=== PATIENT | male | born 1970 ===

== ENCOUNTER 2022-10-12 12:29 | Observation (INO) | payer SELFPAY ==
[2022-10-12] MEDS ORDERED: NITROGLYCERIN SL TABS 0.4 MG TAB SUBLINGUAL STA ×3 (13:04)
[2022-10-12] MEDS ORDERED: ASPIRIN 81 MG PO STA (13:04)
--- NOTE | 2022-10-12 13:09 | ED ---
General Adult HPI - General Chief complaint: Chest Pain Stated complaint: chest pain Time Seen by Provider: 10/12/22 12:44 Source: patient, RN notes reviewed Mode of arrival: ambulatory Limitations: language barrier - History of Present Illness Initial comments: Patient is a pleasant 52-year-old male presenting to the emergency department with concern for chest discomfort. Patient speaks limited Japanese and daughter is present to help translate. Patient has been having chest discomfort since yesterday discomfort is somewhat severe. Discomfort feels like tightness/burning. No associated diaphoresis or dyspnea. Patient has had nausea and did vomit. Discomfort remains persistent. No radiation. No leg pain or leg swelling. - Related Data Home Medications Medication Instructions Recorded Confirmed No Known Home Medications 10/12/22 10/12/22 Allergies Allergy/AdvReac Type Severity Reaction Status Date / Time No Known Allergies Allergy Verified 10/12/22 14:16 Review of Systems ROS Statement: Those systems with pertinent positive or pertinent negative responses have been documented in the HPI. ROS Other: All systems not noted in ROS Statement are negative. Constitutional: Denies: fever Eyes: Denies: eye pain ENT: Denies: ear pain Respiratory: Denies: cough, dyspnea Cardiovascular: Reports: as per HPI, chest pain Endocrine: Denies: fatigue Gastrointestinal: Reports: nausea, vomiting. Denies: abdominal pain Genitourinary: Denies: dysuria Musculoskeletal: Denies: back pain Skin: Denies: rash Neurological: Denies: weakness Past Medical History Past Medical History: No Reported History History of Any Multi-Drug Resistant Organisms: None Reported Past Surgical History: No Surgical Hx Reported Past Psychological History: No Psychological Hx Reported Smoking Status: Current every day smoker Past Alcohol Use History: None Reported Past Drug Use History: None Reported General Exam Limitations: language barrier General appearance: alert, in no apparent distress Head exam: Present: atraumatic Eye exam: Present: normal appearance Neck exam: Present: normal inspection Respiratory exam: Present: normal lung sounds bilaterally. Absent: chest wall tenderness Cardiovascular Exam: Present: regular rate, normal rhythm Expanded Peripheral pulses: 2+: Radial (R), Radial (L), Posterior Tibialis (R), Posterior Tibialis (L), Dorsalis Pedis (R), Dorsalis Pedis (L) GI/Abdominal exam: Present: soft. Absent: tenderness Extremities exam: Present: normal inspection. Absent: pedal edema, calf tenderness Neurological exam: Present: alert Psychiatric exam: Present: normal affect, normal mood Skin exam: Present: normal color Course Vital Signs 10/12/22 10/12/22 12:32 13:33 Temperature 98.2 F Pulse Rate 97 89 Respiratory 20 20 Rate Blood Pressure 148/89 123/75 O2 Sat by Pulse 98 97 Oximetry EKG Findings - EKG Results: EKG: interpreted by ERMD, sinus rhythm, normal axis, normal QRS, normal ST/T Medical Decision Making - Medical Decision Making Was pt. sent in by a medical professional or institution (, PA, SEPARATOR OPERATOR SHELLFISH [employer]ATS, urgent care, hospital, or assisted...) When possible be specific @ -No Did you speak to anyone other than the patient for history (EMS, parent, family, police, friend...)? What history was obtained from this source @ -Daughter is present and helps provide history and translation as patient's main language is Hebrew. Patient does understand some and communicate some however daughter is helpful Did you review nursing and triage notes (agree or disagree)? Why? @ -I reviewed and agree with nursing and triage notes Were old charts reviewed (outside hosp., previous admission, EMS record, old EKG, old radiological studies, urgent care reports/EKG's, assisted records)? Report findings @ -No old charts were reviewed Differential Diagnosis (chest pain, altered mental status, abdominal pain women, abdominal pain men, vaginal bleeding, weakness, fever, dyspnea, syncope, headache, dizziness, GI bleed, back pain, seizure, CVA, palpatations, mental health)? @ -Differential Chest Pain: Stable Angina, Unstable Angina, STEMI, NSTEMI Aortic Dissection, Pneumothorax, Musculoskeletal, Esophageal Spasm GERD, Cholecystitis, Pancreatitis, Zoster, this is not meant to be an all-inclusive list. EKG interpreted by me (3pts min.). @ -As above X-rays interpreted by me (1pt min.). @ -Chest x-ray shows no acute process CT interpreted by me (1pt min.). @ -None done U/S interpreted by me (1pt. min.). @ -None done What testing was considered but not performed or refused? (CT, X-rays, U/S, lab s)? Why? @ -None What meds were considered but not given or refused? Why? @ -None Did you discuss the management of the patient with other professionals (professionals i.e. DrDavid, PA, SEPARATOR OPERATOR [employer], lab, RT, psych nurse, social science teacher, research laboratory manager, teacher, aviation safety officer, machine adjuster leader case trim)? Give summary @ -Case discussed with Dr. Jesus, who will admit for hospital call Was smoking cessation discussed for >3mins.? @ -No Was critical care preformed (if so, how long)? @ -No Were there social determinants of health that impacted care today? How? (Homelessness, low income, unemployed, alcoholism, drug addiction, transportatio n, low edu. Level, literacy, decrease access to med. care, halfway, rehab)? @ -Patient does not have medical insurance and was hesitant to stay however after further discussion patient is agreeable Was there de-escalation of care discussed even if they declined (Discuss DNR or withdrawal of care, Hospice)? DNR status @ -No What co-morbidities impacted this encounter? (DM, HTN, Smoking, COPD, CAD, Cancer, CVA, ARF, Chemo, Hep., AIDS, mental health diagnosis, sleep apnea, morbid obesity)? @ -None Was patient admitted / discharged? Hospital course, mention meds given and route, prescriptions, significant lab abnormalities, going to OR and other pertinent info. @ -Patient will be admitted for cardiac evaluation. and further testing. Undiagnosed new problem with uncertain prognosis? @ -No Drug Therapy requiring intensive monitoring for toxicity (Heparin, Nitro, Insulin, Cardizem)? @ -No Were any procedures done? @ -No Diagnosis/symptom? @ -Chest pain Acute, or Chronic, or Acute on Chronic? @ -Acute Uncomplicated (without systemic symptoms) or Complicated (systemic symptoms)? @ -default Side effects of treatment? @ -No Exacerbation, Progression, or Severe Exacerbation? @ -No Poses a threat to life or bodily function? How? (Chest pain, [place], [place], pneumonia, PE, COPD, DKA, ARF, appy, cholecystitis, CVA, Diverticulitis, Homicidal, Suic idal, threat to staff... and all critical care pts) @ -No - Lab Data Result diagrams: 10/12/22 13:23 10/12/22 13:23 Lab Results 10/12/22 10/12/22 10/12/22 Range/Units 13:23 13:23 13:23 WBC 12.6 H (3.8-10.6) k/uL RBC 4.82 (4.30-5.90) m/uL Hgb 14.5 (13.0-17.5) gm/dL Hct 43.2 (39.0-53.0) % MCV 89.6 (80.0-100.0) fL MCH 30.1 (25.0-35.0) pg MCHC 33.5 (31.0-37.0) g/dL RDW 12.9 (11.5-15.5) % Plt Count 284 (150-450) k/uL MPV 7.0 Neutrophils % 72 % Lymphocytes % 20 % Monocytes % 6 % Eosinophils % 1 % Basophils % 0 % Neutrophils # 9.0 H (1.3-7.7) k/uL Lymphocytes # 2.5 (1.0-4.8) k/uL Monocytes # 0.7 (0-1.0) k/uL Eosinophils # 0.2 (0-0.7) k/uL Basophils # 0.0 (0-0.2) k/uL PT 9.8 (9.0-12.0) sec INR 0.9 (<1.2) APTT 22.8 (22.0-30.0) sec D-Dimer 0.38 (<0.60) mg/L FEU Sodium 139 (137-145) mmol/L Potassium 4.1 (3.5-5.1) mmol/L Chloride 106 (98-107) mmol/L Carbon Dioxide 24 (22-30) mmol/L Anion Gap 9 mmol/L BUN 14 (9-20) mg/dL Creatinine 0.62 L (0.66-1.25) mg/dL Est GFR (CKD-EPI)AfAm >90 (>60 ml/min/1.73 sqM) Est GFR (CKD-EPI)NonAf >90 (>60 ml/min/1.73 sqM) Glucose 119 H (74-99) mg/dL Calcium 9.3 (8.4-10.2) mg/dL Magnesium 2.0 (1.6-2.3) mg/dL Total Bilirubin 0.5 (0.2-1.3) mg/dL AST 22 (17-59) U/L ALT 26 (4-49) U/L Alkaline Phosphatase 75 (38-126) U/L Troponin I (0.000-0.034) ng/mL Total Protein 7.0 (6.3-8.2) g/dL Albumin 4.0 (3.5-5.0) g/dL Amylase 34 (30-110) U/L Lipase 24 (23-300) U/L 10/12/22 Range/Units 13:23 WBC (3.8-10.6) k/uL RBC (4.30-5.90) m/uL Hgb (13.0-17.5) gm/dL Hct (39.0-53.0) % MCV (80.0-100.0) fL MCH (25.0-35.0) pg MCHC (31.0-37.0) g/dL RDW (11.5-15.5) % Plt Count (150-450) k/uL MPV Neutrophils % % Lymphocytes % % Monocytes % % Eosinophils % % Basophils % % Neutrophils # (1.3-7.7) k/uL Lymphocytes # (1.0-4.8) k/uL Monocytes # (0-1.0) k/uL Eosinophils # (0-0.7) k/uL Basophils # (0-0.2) k/uL PT (9.0-12.0) sec INR (<1.2) APTT (22.0-30.0) sec D-Dimer (<0.60) mg/L FEU Sodium (137-145) mmol/L Potassium (3.5-5.1) mmol/L Chloride (98-107) mmol/L Carbon Dioxide (22-30) mmol/L Anion Gap mmol/L BUN (9-20) mg/dL Creatinine (0.66-1.25) mg/dL Est GFR (CKD-EPI)AfAm (>60 ml/min/1.73 sqM) Est GFR (CKD-EPI)NonAf (>60 ml/min/1.73 sqM) Glucose (74-99) mg/dL Calcium (8.4-10.2) mg/dL Magnesium (1.6-2.3) mg/dL Total Bilirubin (0.2-1.3) mg/dL AST (17-59) U/L ALT (4-49) U/L Alkaline Phosphatase (38-126) U/L Troponin I <0.012 (0.000-0.034) ng/mL Total Protein (6.3-8.2) g/dL Albumin (3.5-5.0) g/dL Amylase (30-110) U/L Lipase (23-300) U/L Disposition Clinical Impression: Chest pain Disposition: ADMITTED IP TO THIS HOSP Is patient prescribed a controlled substance at d/c from ED?: No Referrals: None,Stated [Primary Care Provider] - 1-2 days Time of Disposition: 15:12
[2022-10-12 13:39] LABS: Basophils % (A) 0 %; Eosinophils # (A) 0.2 k/uL (0-0.7); Eosinophils % (A) 1 %; HCT 43.2 % (39.0-53.0); HGB 14.5 gm/dL (13.0-17.5); Lymphocytes # (A) 2.5 k/uL (1.0-4.8); Lymphocytes % (A) 20 %; MCH 30.1 pg (25.0-35.0); MCHC 33.5 g/dL (31.0-37.0); MCV 89.6 fL (80.0-100.0); Monocytes # (A) 0.7 k/uL (0-1.0); Monocytes % (A) 6 %; Neutrophils % (A) 72 %; Platelet Count 284 k/uL (150-450); RBC 4.82 m/uL (4.30-5.90); RDW 12.9 % (11.5-15.5); WBC 12.6 k/uL (3.8-10.6)
--- NOTE | 2022-10-12 13:59 | XR ---
EXAMINATION TYPE: XR chest 2V DATE OF EXAM: 10/12/2022 1:51 PM COMPARISON: None TECHNIQUE: XR chest 2V Frontal and lateral views of the chest. CLINICAL INDICATION:Male, 52 years old with history of Chest Pain; FINDINGS: Lungs/Pleura: There is no evidence of pleural effusion, focal consolidation, or pneumothorax. Pulmonary vascularity: Unremarkable. Heart/mediastinum: Cardiomediastinal silhouette is unremarkable. Musculoskeletal: No acute osseous pathology. IMPRESSION: No acute cardiopulmonary disease/process.
[2022-10-12 14:01] LABS: ALT 26 U/L (4-49); AST 22 U/L (17-59); African American GFR (CKD) >90 (>60 ml/min/1.73 sqM); Alkaline Phosphatase 75 U/L (38-126); Amylase 34 U/L (30-110); Anion Gap 9 mmol/L; Blood Urea Nitrogen 14 mg/dL (9-20); Calcium 9.3 mg/dL (8.4-10.2); Carbon Dioxide 24 mmol/L (22-30); Chloride 106 mmol/L (98-107); Glucose 119 mg/dL (74-99); Lipase 24 U/L (23-300); Non-African American GFR(CKD) >90 (>60 ml/min/1.73 sqM); Potassium 4.1 mmol/L (3.5-5.1); Sodium 139 mmol/L (137-145); Total Bilirubin 0.5 mg/dL (0.2-1.3)
[2022-10-12 14:22] LABS: INR 0.9 (<1.2); Partial Thromboplastin Time 22.8 sec (22.0-30.0); Prothrombin Time 9.8 sec (9.0-12.0)
[2022-10-12] MEDS ORDERED: NITROGLYCERIN SL TABS 0.4 MG TAB SUBLINGUAL PRN (15:12)
[2022-10-12] MEDS: NITROGLYCERIN OINT 1 INCH/GM PACKET TOPICAL SCH (17:43)
--- NOTE | 2022-10-12 20:34 | CT ---
EXAMINATION TYPE: CT chest wo con DATE OF EXAM: 10/12/2022 COMPARISON: None HISTORY: Chest pain CT DLP: 468.8 mGycm, Automated exposure control for dose reduction was used. CONTRAST: Performed injected with 0 mL of Isovue 300. TECHNIQUE: Axial images were obtained at 5 mm thick sections. Reconstructed images are reviewed on [employer] computer in the coronal plane. FINDINGS: Portion of the thyroid visualized is normal. Mild subsegmental atelectasis in the lateral right lung base and posterior left lung base. Lungs othe rwise appear clear. No enlarged mediastinal or hilar adenopathy is evident. The ascending aorta diameter at the level o f the main pulmonary artery is 3.2 cm. The main pulmonary artery diameter at the bifurcation is 2.[address] sections are obtained through the upper abdomen. Diffuse fatty infiltration is pancreas. T here are inflammatory changes in the right upper quadrant near the neck of the gallbladder. This is n ear the hepatic flexure. Consider right upper quadrant evaluation as needed. There is a punctate nono bstructing renal stone in the mid inferior posterior right kidney. Adrenal glands appear normal. IMPRESSIONS: 1. Mild Atelectasis right lung base. 2. There may be some inflammatory change near the hepatic flexure or neck of the gallbladder. Conside r cholecystitis.
[2022-10-12] MEDS ORDERED: ACETAMINOPHEN TAB 325 MG TAB PO PRN (22:23)
[2022-10-13] MEDS: NITROGLYCERIN OINT 1 INCH/GM PACKET TOPICAL SCH ×4 (00:14→17:32)
--- NOTE | 2022-10-13 10:36 | HP ---
HISTORY AND PHYSICAL A 52-year-old white male came in with atypical chest pain, waking him up in the middle of the night. He has never had this pain before. He is 52 years old. He says he does not . He normally breathes good. He has a nonobstructive right kidney stone on his CAT scan, inflammatory changes into the hepatic flexure, possible gallbladder. Consider cholecystitis. We will have to work this up. We may do a HIDA scan in the morning. Cardiology is admitted for possible clearance. White count high at 12.6, neutrophils 9.6. D-dimer 0.38. Creatinine 0.62, glucose 119. Liver enzymes are normal. Troponins negative x3. Amylase and lipase normal. Rule out cholecystitis. Atypical chest pain. Cardiology will clear for discharge. Negative D-dimer . Chest x-ray is negative. Possible HIDA scan in the morning prior to discharge. Please see further orders. MMODL / IJN: [id number] /
--- NOTE | 2022-10-13 11:22 | US ---
EXAMINATION TYPE: US gallbladder DATE OF EXAM: 10/13/2022 COMPARISON: NONE CLINICAL INDICATION: Male, 52 years old with history of RUQ abdominal pain, gallstone; RUQ pain TECHNIQUE: Multiple sonographic images of the right upper quadrant are obtained. FINDINGS: EXAM MEASUREMENTS: Liver Length: 18.2 cm Gallbladder Wall: .4 cm CBD: .4 cm Right Kidney: 12.4 x 6.8 x 5.2 cm TERMINAL MAKE UP OPERATOR NOTES: Pancreas: Obscured by bowel gas Liver: Increased attenuation Gallbladder: No stones visualized wall is thickened. Evidence for sonographic Acosta's sign: no CBD: wnl Right Kidney: No hydronephrosis or masses seen IMPRESSION: 1. Thickened gallbladder wall. Correlate for acute cholecystitis. 2. Hepatomegaly with mild fatty infiltration of liver.
[2022-10-13] MEDS: ASPIRIN 325 MG TAB PO SCH (11:28)
--- NOTE | 2022-10-13 11:57 | CA ---
Transthoracic Echo Report Name: Zbigniew Stearns Age: 52 Gender: M : 1970 Exam Date: 10/13/2022 08:48 Exam Location: [facility] Ht (in): 67 Wt (lb): 190 Ordering Physician: Ness Durbin Attending/Referring Phys: [id number], Ramakrishna Pourer Off Peggy Prado RDCS Procedure CPT: Indications: LVF Cardiac Hx: Technical Quality: Fair Contrast 1: Total Dose (mL): Contrast 2: Total Dose (mL): MEASUREMENTS (Male / Female) Normal Values 2D ECHO LV Diastolic Diameter PLAX 3.9 cm 4.2 - 5.9 / 3.9 - 5.3 cm LV Systolic Diameter PLAX 2.7 cm IVS Diastolic Thickness 1.1 cm 0.6 - 1.0 / 0.6 - 0.9 cm LVPW Diastolic Thickness 1.2 cm 0.6 - 1.0 / 0.6 - 0.9 cm LV Relative Wall Thickness 0.6 RV Internal Dim ED PLAX 3.5 cm LA Volume 55.2 cm??? 18 - 58 / 22 - 52 cm??? M-MODE Aortic Root Diameter MM 3.0 cm LA Systolic Diameter MM 3.4 cm LA Ao Ratio MM 1.1 AV Cusp Separation MM 2.0 cm DOPPLER AV Peak Velocity 170.4 cm/s AV Peak Gradient 11.6 mmHg AV Mean Velocity 119.9 cm/s AV Mean Gradient 6.3 mmHg AV Velocity Time Integral 31.5 cm LVOT Peak Velocity 123.3 cm/s LVOT Peak Gradient 6.1 mmHg LVOT Velocity Time Integral 26.6 cm MV Area PHT 3.4 cm??? Mitral E Point Velocity 80.5 cm/s Mitral A Point Velocity 100.3 cm/s Mitral E to A Ratio 0.8 MV Deceleration Time 220.8 ms MV E' Velocity 9.7 cm/s Mitral E to MV E' Ratio 8.3 TR Peak Velocity 243.7 cm/s TR Peak Gradient 23.8 mmHg Right Ventricular Systolic Press 28.8 mmHg FINDINGS Left Ventricle Mildly increased left ventricular wall thickness. Normal left ventricular systolic function with no obvious regional wall motion abnormalities. Left ventricular ejection fraction is estimated at 55-60 %. Right Ventricle Mild right ventricular dilatation. Right ventricular systolic pressure within normal limits. Right Atrium Normal right atrial size. Left Atrium Normal left atrial size. Interatrial septal aneurysm. Mitral Valve Structurally normal mitral valve. Aortic Valve Trileaflet aortic valve. No aortic valve stenosis or regurgitation. Tricuspid Valve Structurally normal tricuspid valve. Mild tricuspid regurgitation. Pulmonic Valve Trace pulmonic regurgitation. Pericardium No pericardial effusion. Aorta Normal size aortic root and proximal ascending aorta. CONCLUSIONS Normal LV systolic function Mild tricuspid regurgitation Previewed by: Dr. Swapnil Rutherford MD (Electronically Signed) Final Date: 13 October 2022 11:57
--- NOTE | 2022-10-13 12:16 | P.CRDCN ---
History of Present Illness Consult date: 10/13/22 Consult reason: chest pain History of present illness: History of present illness: This is an 82-year-old male with no previous cardiac history. He does not follow with a library page. We have been asked to evaluate the patient for chest pain. Approximate 12 midnight patient developed sharp pain in the center of his chest that woke him from sleep. He also had headache and vomiting. Pain went straight through to his back but no radiation to his neck or arm. He did receive nitroglycerin sublingual 1 in the emergency center and chest pain is completely gone. He has a family history of father having a CABG done at age 45. Patient is a smoker since his teen years at 5 cigarettes per day. No alcohol or illicit drug use. Patient only speaks Urdu and daughter is here as breaker boss. EKG sinus rhythm with no acute ST changes. Chest x-ray: No acute process CT of the chest revealed mild atelectasis right lung base. There may be some inflammatory changes near the hepatic flexure or neck of the gallbladder. Consider cholecystitis. Echocardiogram reveals normal LV systolic function, mild tricuspid regurgitation. Gallbladder ultrasound revealed thickened gallbladder wall. Correlate for acute cholecystitis. Hepatomegaly with mild fatty infiltration of the liver. Home cardiac medications: None Review Of Systems: At the time of my evaluation: Constitutional: No fever, no chills. No weakness, fatigue or lethargy. EENT: No headache. No dizziness. Lungs: No shortness of breath, cough, no sputum production. No wheezing. Cardiovascular: No chest pain, no lower extremity edema. No palpitations. No paroxysmal nocturnal dyspnea. No orthopnea. No lightheadedness or dizziness. No syncopal episodes. Abdominal: No abdominal pain. No nausea, vomiting. No diarrhea. No constipation. No bloody or tarry stools. Genitourinary: No dysuria.. No urinary retention. Musculoskeletal: No myalgias. No muscle weakness, no frequent falls. No back pain. No neck pain. Integumentary: No wounds. No rash. No unusual bruising. Neurologic: No aphasia. No facial droop. No change in mentation. No head injury. No headache. Physical examination: Gen: This is a 52-year-old male. He is resting in bed and appears to be comfortable and in no acute distress VS: reviewed HEENT: Head is atraumatic, normocephalic. Pupils equal, round. Sclerae is anicteric. NECK: Supple. No JVD. . LUNGS: Clear to auscultation. No wheezes or rhonchi. No intercostal retractions. HEART: Regular rate and rhythm. No murmur. No chest wall tenderness ABDOMEN: Soft No tenderness. EXTREMITIES: No pedal edema. No calf tenderness. NEUROLOGICAL: Patient is awake, alert and oriented x3. Assessment: Chest pain, acute coronary syndrome ruled out Chest pain most likely due to musculoskeletal or cholecystitis Plan: Obtain stress echocardiogram If stress echocardiogram is unremarkable, patient is cleared for discharge home today. Thank you kindly for this consultation. Nurse practitioner note has been reviewed, I agree with documented findings and plan of care. Patient was seen and examined. Past Medical History Past Medical History: No Reported History History of Any Multi-Drug Resistant Organisms: None Reported Past Surgical History: Appendectomy, Orthopedic Surgery Additional Past Surgical History / Comment(s): Right heel fracture repaired, and right hand and foot sx in [place] Past Anesthesia/Blood Transfusion Reactions: No Reported Reaction Past Psychological History: No Psychological Hx Reported Smoking Status: Current every day smoker Past Alcohol Use History: None Reported Past Drug Use History: None Reported Additional Drug Use History / Comment(s): pt states he smokes about 4 cigerettes a day. Medications and Allergies Home Medications Medication Instructions Recorded Confirmed Type No Known Home Medications 10/12/22 10/12/22 History Allergies Allergy/AdvReac Type Severity Reaction Status Date / Time No Known Allergies Allergy Verified 10/12/22 14:16 Physical Exam Vitals: Vital Signs Temp Pulse Pulse Pulse Resp BP BP 10/13/22 07:42 98.3 F 85 18 117/68 10/13/22 02:18 98.2 F 78 18 10/12/22 21:39 98.2 F 66 18 10/12/22 21:00 75 18 119/61 10/12/22 18:58 77 18 109/69 10/12/22 17:40 77 18 119/78 10/12/22 17:00 123/83 10/12/22 16:00 106/79 10/12/22 15:00 81 18 109/80 10/12/22 14:00 116/81 10/12/22 13:33 89 20 123/75 10/12/22 12:32 98.2 F 97 20 148/89 BP Pulse Ox 10/13/22 07:42 97 10/13/22 02:18 99/59 93 L 10/12/22 21:39 106/66 97 10/12/22 21:00 97 10/12/22 18:58 95 10/12/22 17:40 97 10/12/22 17:00 10/12/22 16:00 10/12/22 15:00 97 10/12/22 14:00 10/12/22 13:33 97 10/12/22 12:32 98 Intake and Output 10/12/22 10/13/22 10/13/22 22:59 06:59 14:59 Intake Total 0 Balance 0 Intake: Oral 0 Other: # Voids 2 2 Weight 86.183 kg Results 10/12/22 13:23 10/12/22 13:23 Cardiac Enzymes 10/12/22 10/12/22 10/12/22 Range/Units 13:23 13:23 16:06 AST 22 (17-59) U/L Troponin I <0.012 <0.012 (0.000-0.034) ng/mL 10/12/22 Range/Units 20:07 AST (17-59) U/L Troponin I <0.012 (0.000-0.034) ng/mL Coagulation 10/12/22 Range/Units 13:23 PT 9.8 (9.0-12.0) sec APTT 22.8 (22.0-30.0) sec CBC 10/12/22 Range/Units 13:23 WBC 12.6 H (3.8-10.6) k/uL RBC 4.82 (4.30-5.90) m/uL Hgb 14.5 (13.0-17.5) gm/dL Hct 43.2 (39.0-53.0) % Plt Count 284 (150-450) k/uL Comprehensive Metabolic Panel 10/12/22 Range/Units 13:23 Sodium 139 (137-145) mmol/L Potassium 4.1 (3.5-5.1) mmol/L Chloride 106 (98-107) mmol/L Carbon Dioxide 24 (22-30) mmol/L BUN 14 (9-20) mg/dL Creatinine 0.62 L (0.66-1.25) mg/dL Glucose 119 H (74-99) mg/dL Calcium 9.3 (8.4-10.2) mg/dL AST 22 (17-59) U/L ALT 26 (4-49) U/L Alkaline Phosphatase 75 (38-126) U/L Total Protein 7.0 (6.3-8.2) g/dL Albumin 4.0 (3.5-5.0) g/dL Current Medications Generic Name Dose Route Start Last Admin Trade Name Freq PRN Reason Stop Dose Admin Acetaminophen 650 mg 10/12/22 22:23 10/12/22 23:00 Acetaminophen Tab 325 Mg Tab PO 650 mg Q6HR PRN Administration Fever and/ or Pain Aspirin 325 mg 10/13/22 09:00 Aspirin 325 Mg Tab PO DAILY KEITH Nitroglycerin 0.4 mg 10/12/22 15:12 Nitroglycerin Sl Tabs 0.4 Mg Tab SUBLINGUAL Q5M PRN Chest Pain Nitroglycerin 1 inch 10/12/22 18:00 10/13/22 04:03 Nitroglycerin Oint 1 Inch/Gm Packet TOPICAL Not Given Q6HR KEITH Intake and Output 10/12/22 10/13/22 10/13/22 22:59 06:59 14:59 Intake Total 0 Balance 0 Intake: Oral 0 Other: # Voids 2 2 Weight 86.183 kg 10/12/22 13:23 10/12/22 13:23
--- NOTE | 2022-10-13 12:44 | CA ---
Stress Echo Report Zbigniew Stearns Age: 52 Gender: M : 1970 Exam Date: 10/13/2022 12:01 Exam Location: [facility] Ht (in): 64 Wt (lb): 190 Ordering Physician: Ness Durbin Referring Physician: [id number] Industrial Technology Teacher: ALVA Technologist Procedure CPT: Indication: CP ICD-9 Codes: Rhythm: Patient History: Atypical angina, Family history, Smoker Cardiac Medications: Medications in past 24 hours: Contrast: Stress Results Protocol: Alvarez Total dose(mL): Exercise Duration (min:sec): 10:[address] Depression (mm): Angina Score: Blount Score: METS: 11.7 Resting HR: 85 Resting BP: 108 / 65 Peak HR: 146 Peak BP: 169 / 81 Max Predicted HR: 166 88 % Max Predicted HR Target HR: 141 Double Product: 92436 Stress Summary: The patient's target heart rate was achieved BP Response: Normal Reason for Termination: Reached target heart rate or work-load Cardiac Symptoms: Test terminated after reaching target heart rate (85% max predicted) ECG Analysis Resting ECG: Normal sinus rhythm normal axis normal intervals Stress ECG: Patient exercised on Alvarez protocol for 10 minutes achieving 11 mets 85% of predicted maximal heart rate without chest pain or diagnostic ST segment depression Arrhythmia: Echo Analysis Resting Echo: Normal left ventricular size wall motion systolic function Peak Echo Analysis: Normal hyperdynamic response of all segments of myocardium noted MEASUREMENTS (Male/Female) Normal Values CONCLUSIONS Good exercise tolerance Negative stress test by EKG criteria Negative stress echo Dr. Swapnil Rutherford MD (Electronically Signed) Final Date: 13 October 2022 12:44
[2022-10-13] MEDS ORDERED: ONDANSETRON 4 MG/2 ML VIAL IVP PRN (14:55)
--- NOTE | 2022-10-13 14:57 | P.GSCN ---
History of Present Illness Consult date: 10/13/22 History of present illness: CHIEF COMPLAINT: Chest pain HISTORY OF PRESENT ILLNESS: This is a 52-year-old male who presents to the hospital with complaints of chest pain that started yesterday. Patient reports that the pain is in the mid chest and radiates up and down the sternum and to the back. He did have nausea and vomiting. Does has a history of smok ing. Troponins are negative. He's being evaluated by cardiology and is scheduled for a stress echo today. Patient had a computed tomography scan of the chest that had shown inflammatory changes near the hepatic flexure or neck of the gallbladder. Consider cholecystitis. Surgical service consulted in regards to possible cholecystitis. Patient does not speak Latvian. History was obtained from patient's daughter at bedside. Patient seen and examined with Dr. singh PAST MEDICAL HISTORY: See below PAST SURGICAL HISTORY: See below MEDICATIONS: See below ALLERGIES: See below SOCIAL HISTORY: No illicit drug use. REVIEW OF SYSTEMS: CONSTITUTIONAL: Denies fever or chills. HEENT: Denies blurred vision, vision changes, or eye pain. Denies hemoptysis CARDIOVASCULAR: Denies chest pain or pressure. RESPIRATORY: No shortness of breath. GASTROINTESTINAL: See HPI for pertinent findings HEMATOLOGIC: Denies bleeding disorders. GENITOURINARY: Denies any blood in urine or increased urinary frequency. SKIN: Denies pruitis. Denies rash. PHYSICAL EXAM: VITAL SIGNS: Reviewed GENERAL: Well-developed in no acute distress. HEENT: No sclera icterus. Extraocular movements grossly intact. Moist buccal mucosa. Head is atraumatic, normocephalic. No nasal drainage. ABDOMEN: Soft. Nondistended. Tenderness to palpation of the right upper quadrant and epigastric area NEUROLOGIC: Alert and oriented. Cranial nerves II through XII grossly intact. LABORATORY DATA: WBC is 12.6 Hgb 14.5 platelets 284 INR 0.9 d-dimer 0.38 Sodium is 139 potassium 4.1 creatinine 0.62 LFTs are normal lipase 24 troponins are negative 3 IMAGING: computed tomography scan of the chest that had shown mild atelectasis the right lung. There may be some inflammatory changes near the hepatic flexure or neck of the gallbladder. Consider cholecystitis. Echo shows normal LV function mild tricuspid regurgitation. Gallbladder ultrasound shows thickened gallbladder wall. Correlate for acute ch olecystitis. Hepatomegaly with mild fatty infiltration of liver. ASSESSMENT: 1. Acute cholecystitis with computed tomography scan evidence of inflammatory changes near the hepatic flexure or neck of the gallbladder and US with thickening gallbladder wall 2. Chest pain. Workup being completed by cardiology PLAN: -Patient scheduled tentatively for laparoscopic cholecystectomy tomorrow with Dr. singh -Continue cardiac workup -HIDA scan ordered -Add Zosyn for acute cholecystitis -Continue supportive care -Nothing by mouth after midnight Physician Hunting Sales Associate note has been reviewed by physician. Signing provider agrees with the documented findings, assessment, and plan of care. Past Medical History Past Medical History: No Reported History History of Any Multi-Drug Resistant Organisms: None Reported Past Surgical History: Appendectomy, Orthopedic Surgery Additional Past Surgical History / Comment(s): Right heel fracture repaired, and right hand and foot sx in [place] Past Anesthesia/Blood Transfusion Reactions: No Reported Reaction Past Psychological History: No Psychological Hx Reported Smoking Status: Current every day smoker Past Alcohol Use History: None Reported Past Drug Use History: None Reported Additional Drug Use History / Comment(s): pt states he smokes about 4 cigerettes a day. Medications and Allergies Home Medications Medication Instructions Recorded Confirmed Type No Known Home Medications 10/12/22 10/12/22 History Allergies Allergy/AdvReac Type Severity Reaction Status Date / Time No Known Allergies Allergy Verified 10/12/22 14:16 Surgical - Exam Vital Signs Temp Pulse Resp BP Pulse Ox 98.2 F 97 20 148/89 98 10/12/22 12:32 10/12/22 12:32 10/12/22 12:32 10/12/22 12:32 10/12/22 12:32 Results - Labs 10/12/22 13:23 10/12/22 13:23 Abnormal Lab Results - Last 24 Hours (Table) 10/12/22 10/12/22 Range/Units 13:23 13:23 WBC 12.6 H (3.8-10.6) k/uL Neutrophils # 9.0 H (1.3-7.7) k/uL Creatinine 0.62 L (0.66-1.25) mg/dL Glucose 119 H (74-99) mg/dL Diabetes panel 10/12/22 Range/Units 13:23 Sodium 139 (137-145) mmol/L Potassium 4.1 (3.5-5.1) mmol/L Chloride 106 (98-107) mmol/L Carbon Dioxide 24 (22-30) mmol/L BUN 14 (9-20) mg/dL Creatinine 0.62 L (0.66-1.25) mg/dL Glucose 119 H (74-99) mg/dL Calcium 9.3 (8.4-10.2) mg/dL AST 22 (17-59) U/L ALT 26 (4-49) U/L Alkaline Phosphatase 75 (38-126) U/L Total Protein 7.0 (6.3-8.2) g/dL Albumin 4.0 (3.5-5.0) g/dL Calcium panel 10/12/22 Range/Units 13:23 Calcium 9.3 (8.4-10.2) mg/dL Albumin 4.0 (3.5-5.0) g/dL Pituitary panel 10/12/22 Range/Units 13:23 Sodium 139 (137-145) mmol/L Potassium 4.1 (3.5-5.1) mmol/L Chloride 106 (98-107) mmol/L Carbon Dioxide 24 (22-30) mmol/L BUN 14 (9-20) mg/dL Creatinine 0.62 L (0.66-1.25) mg/dL Glucose 119 H (74-99) mg/dL Calcium 9.3 (8.4-10.2) mg/dL Adrenal panel 10/12/22 Range/Units 13:23 Sodium 139 (137-145) mmol/L Potassium 4.1 (3.5-5.1) mmol/L Chloride 106 (98-107) mmol/L Carbon Dioxide 24 (22-30) mmol/L BUN 14 (9-20) mg/dL Creatinine 0.62 L (0.66-1.25) mg/dL Glucose 119 H (74-99) mg/dL Calcium 9.3 (8.4-10.2) mg/dL Total Bilirubin 0.5 (0.2-1.3) mg/dL AST 22 (17-59) U/L ALT 26 (4-49) U/L Alkaline Phosphatase 75 (38-126) U/L Total Protein 7.0 (6.3-8.2) g/dL Albumin 4.0 (3.5-5.0) g/dL
[2022-10-13 16:34] LABS: Chol/HDL Ratio 6.03 Ratio; LDL Cholesterol,Calculated 151.6 mg/dL (0.0-131.0)
--- NOTE | 2022-10-13 17:52 | NM ---
EXAMINATION TYPE: NM hepatobiliary w CCK DATE OF EXAM: 10/13/2022 COMPARISON: Gallbladder ultrasound 10/13/2022 HISTORY: Cholecystitis. TECHNIQUE: After the intravenous administration of 5.3 mCi Tc 99m Mebrofenin hepatobiliary scintigrap hy is performed. Immediate images post injection. FINDINGS: There is satisfactory initial accumulation of tracer by the liver. The gallbladder is visualized wit hin 46 minutes. The small bowel activity is noted within 2 minutes. At one hour CCK was administere d, patient was injected with 1.7 mcg of Kinevac, and gallbladder ejection fraction is calculated at 0 %. Therefore there is no scintigraphic evidence of cystic or common bile duct obstruction to suggest acute cholecystitis or gallbladder dyskinesia. IMPRESSION: 1. No evidence for acute cholecystitis. 2. Ejection fraction of 0% consistent with biliary dyskinesia.
[2022-10-13] MEDS: PIPERACILLIN-TAZOBACTAM 3.375 GM in SODIUM CHLORIDE 0.9% 100 ML IVPB SCH ×2 (18:18→23:02)
[2022-10-14] MEDS: NITROGLYCERIN OINT 1 INCH/GM PACKET TOPICAL SCH ×2 (01:11→04:50)
--- NOTE | 2022-10-14 02:34 | PN ---
PROGRESS NOTE The patient had a stress echo by Dr. Rutherford today for atypical chest pain suspicious for cholecystitis. He reached target heart rate. Normal systolic function. Normal hyperdynamic response without chest pain, or diagnostic ST-T depression that sounds like a pass. He is scheduled for a lap juan josé tomorrow. He had a hepatobiliary scan that showed ejection fraction of 0 consistent with biliary dyskinesia. He can have a cholecystitis tomorrow and discharged probably in the near future after that. Echo shows normal ejection fraction. Continue current treatments. Prognosis guarded. He has cholecystitis causing chest pain. He will have to have surgery tomorrow and then go home after that. Pain control. Broad-spectrum antibiotics. Prognosis guarded. MMODL / IJN: [id number] /
[2022-10-14 07:33] LABS: Basophils # (A) 0.1 k/uL (0-0.2); Basophils % (A) 1 %; Eosinophils # (A) 0.3 k/uL (0-0.7); Eosinophils % (A) 2 %; HCT 43.8 % (39.0-53.0); HGB 14.3 gm/dL (13.0-17.5); Lymphocytes # (A) 2.6 k/uL (1.0-4.8); Lymphocytes % (A) 20 %; MCH 29.9 pg (25.0-35.0); MCHC 32.8 g/dL (31.0-37.0); MCV 91.2 fL (80.0-100.0); Mean Platelet Volume 7.1; Monocytes % (A) 8 %; Neutrophils # (A) 9.1 k/uL (1.3-7.7); Neutrophils % (A) 69 %; Platelet Count 288 k/uL (150-450); WBC 13.2 k/uL (3.8-10.6)
[2022-10-14 07:55] LABS: African American GFR (CKD) >90 (>60 ml/min/1.73 sqM); Anion Gap 8 mmol/L; Blood Urea Nitrogen 13 mg/dL (9-20); Calcium 8.6 mg/dL (8.4-10.2); Carbon Dioxide 23 mmol/L (22-30); Chloride 106 mmol/L (98-107); Glucose 107 mg/dL (74-99); Non-African American GFR(CKD) >90 (>60 ml/min/1.73 sqM); Potassium 4.3 mmol/L (3.5-5.1); Sodium 137 mmol/L (137-145)
[2022-10-14] MEDS: PIPERACILLIN-TAZOBACTAM 3.375 GM in SODIUM CHLORIDE 0.9% 100 ML IVPB SCH ×2 (09:05→16:26)
[2022-10-14] MEDS: ASPIRIN 325 MG TAB PO SCH (09:13)
--- NOTE | 2022-10-14 10:05 | P.PN ---
Subjective Progress Note Date: 10/14/22 History of present illness: This is an 82-year-old male with no previous cardiac history. 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 We have been asked to evaluate the patient for chest pain. Approximate 12 midnight patient developed sharp pain in the center of his chest that woke him from sleep. He also had headache and vomiting. Pain went straight through to his back but no radiation to his neck or arm. He did receive nitroglycerin sublingual 1 in the emergency center and chest pain is completely gone. He has a family history of father having a CABG done at age 45. Patient is a smoker since his teen years at 5 cigarettes per day. No alcohol or illicit drug use. Patient only speaks Maltese and daughter is here as operating table assembler. EKG sinus rhythm with no acute ST changes. Chest x-ray: No acute process CT of the chest revealed mild atelectasis right lung base. There may be some inflammatory changes near the hepatic flexure or neck of the gallbladder. Consider cholecystitis. Echocardiogram reveals normal LV systolic function, mild tricuspid regurgitation. Gallbladder ultrasound revealed thickened gallbladder wall. Correlate for acute cholecystitis. Hepatomegaly with mild fatty infiltration of the liver. Home cardiac medications: None 10/14 Yesterday, patient underwent stress echocardiogram which came back negative. Echocardiogram reveals normal LV systolic function, mild tricuspid regurgitation. Patient denies having any chest pain. He has been seen by general surgery and is scheduled today for cholecystectomy. Patient is cleared by cardiology for surgical intervention. Physical examination: Gen: This is a 52-year-old male. He is resting in bed and appears to be comfortable and in no acute distress VS: reviewed HEENT: Head is atraumatic, normocephalic. Pupils equal, round. Sclerae is anicteric. NECK: Supple. No JVD. . LUNGS: Clear to auscultation. No wheezes or rhonchi. No intercostal retractions. HEART: Regular rate and rhythm. No murmur. No chest wall tenderness ABDOMEN: Soft No tenderness. EXTREMITIES: No pedal edema. No calf tenderness. NEUROLOGICAL: Patient is awake, alert and oriented x3. Assessment: Chest pain, acute coronary syndrome ruled out Chest pain most likely due to musculoskeletal or cholecystitis Plan: Cardiology we will sign off and follow on an as-needed basis. Please reconsult if any new concerns. No follow-up in the office as necessary. Nurse practitioner note has been reviewed, I agree with documented findings and plan of care. Patient was seen and examined. Objective - Vital Signs Vital signs: Vital Signs Temp 98.3 F 10/14/22 06:58 Pulse 82 10/14/22 06:58 Resp 18 10/14/22 06:58 BP 114/67 10/14/22 06:58 Pulse Ox 95 10/14/22 06:58 FiO2 Intake & Output 10/13/22 10/14/22 10/14/22 18:59 06:59 18:59 Other: # Voids 1 1 - Labs CBC & Chem 7: 10/14/22 06:41 10/14/22 06:41 Labs: Abnormal Lab Results - Last 24 Hours (Table) 10/13/22 10/14/22 10/14/22 Range/Units 06:08 06:41 06:41 WBC 13.2 H (3.8-10.6) k/uL Neutrophils # 9.1 H (1.3-7.7) k/uL Glucose 107 H (74-99) mg/dL Cholesterol 210.00 H (0.00-200.00) mg/dL LDL Cholesterol, Calc 151.6 H (0.0-131.0) mg/dL HDL Cholesterol 34.80 L (40.00-60.00) mg/dL
[2022-10-14] MEDS ORDERED: SODIUM CHLORIDE 0.9% 1,000 ML IV ONE (17:16)
[2022-10-14] MEDS ORDERED: INDOCYANINE GREEN 25 MG VIAL IV STA (17:44)
[2022-10-14] MEDS ORDERED: INDOCYANINE GREEN 25 MG VIAL IV ONE ×2 (18:09→18:46)
[2022-10-14] MEDS ORDERED: HYDROmorphone (PF) 1 MG/ML ONE (18:46)
[2022-10-14] MEDS ORDERED: LIDOCAINE 2% INJ 20 MG/ML (2 ML VIAL) ONE (18:46)
[2022-10-14] MEDS ORDERED: MIDAZOLAM 2 MG/2 ML VIAL ONE (18:46)
[2022-10-14] MEDS ORDERED: DEXAMETHASONE SOD PHOSPHATE 4 MG/ML 1 ML VIAL ONE (18:46)
[2022-10-14] MEDS ORDERED: ePHEDrine 50 MG/ML 1 ML VIAL ONE (18:46)
[2022-10-14] MEDS ORDERED: SUCCINYLCHOLINE CHLORIDE 200 MG/10 ML VIAL IV ONE (18:46)
[2022-10-14] MEDS ORDERED: KETOROLAC 15 MG/ML 1 ML VIAL ONE (18:46)
[2022-10-14] MEDS ORDERED: NEOSTIGMINE 1 MG/ML 10 ML VIAL ONE (18:46)
[2022-10-14] MEDS ORDERED: GLYCOPYRROLATE 0.2 MG/ML 2 ML VIAL ONE (18:46)
[2022-10-14] MEDS ORDERED: ONDANSETRON 4 MG/2 ML VIAL ONE (18:46)
[2022-10-14] MEDS ORDERED: ROCURONIUM 10 MG/ML (5 ML VIAL) IV ONE (18:46)
[2022-10-14] MEDS ORDERED: fentaNYL (PF) 50 MCG/ML 2 ML AMP ONE (18:46)
[2022-10-14] MEDS ORDERED: PROPOFOL 10 MG/ML 20 ML VIAL IV ONE (18:46)
[2022-10-14] MEDS ORDERED: IV FLUID CONTINUATION 100 ML IV ONE ×2 (18:50)
[2022-10-14] MEDS ORDERED: BUPIVACAIN-EPI 0.25%-1:200,000 30 ML VIAL SQ ONE (19:12)
[2022-10-14] MEDS ORDERED: LACTATED RINGERS 1,000 ML IV ONE ×3 (19:13→19:45)
--- NOTE | 2022-10-14 20:28 | P.OP ---
Date of Procedure: 10/14/22 Preoperative Diagnosis: Cholecystitis Postoperative Diagnosis: Cholecystitis Procedure(s) Performed: Laparoscopic robotic-assisted cholecystectomy Anesthesia: RUDI Surgeon: Brannon Nix Estimated Blood Loss (ml): 25 Pathology: other (Gallbladder) Condition: stable Disposition: PACU Description of Procedure: The patient's placed on the operative table in the supine position. The patient received general endotracheal anesthesia. His abdomen was prepped with sterile fashion. An infraumbilical skin incision was made. The Veress needles positioned into the peritoneal cavity. Position of the Veress needle was confirmed with a positive drop test. The abdomen was then insufflated. After adequate insufflation a 5 mm trochars placed. Cavity. Next the laparoscope placed. Cavity. A 8 mm robotic trocar was placed in the left mid abdomen. A a 8 mm robotic trochars placed in the right lateral position and then the right mid abdomen position. The patient was then placed in reverse Trendelenburg. Patient with was docked to the robot. There were adhesions to the dome of the gallbladder. These were lysed using the hook cautery. The gallbladder fundus was then grasped with a pro-grasp grasper. And then the gallbladder was retracted cephalad. There were adhesions along the body of the gallbladder. These were lysed with sharp dissection. The fundus of the gallbladder was then grasped in the lateral traction was placed in the fundus. And then using blunt and sharp dissection the cystic duct was identified. Using ICG firefly applied the cystic duct was identified. A critical view of safety was achieved. The cystic duct was seen entering the common bile duct the common hepatic duct was seen. The cystic duct had been completely dissected and then the cystic duct was clipped and divided. The cystic artery was then identified and then clipped and divided. The gallbladder was then removed from liver bed using left cautery. The gallbladder was placed in a 5 mm Endo Catch bag. The liver bed was hemostasis. There is no bleeding seen. The abdomen was irrigated. No bleeding was seen. The patient was then undocked from the robot. The gallbladder was extracted through the umbilical port site. The umbilical port site was then closed with 0 Ethibond suture. The trochars withdrawn. Skin was closed interrupted 3-0 Monocryl suture. Dermabond dressing applied. Patient top she will was sent to recovery room in stable condition.
[2022-10-14] MEDS ORDERED: HYDROmorphone 0.5 MG/0.5 ML SYRINGE IVP ONE ×2 (20:45→20:48)
[2022-10-14] MEDS ORDERED: HYDROmorphone 1 MG/ML 1 ML SYRINGE IVP PRN (21:01)
[2022-10-15] MEDS: PIPERACILLIN-TAZOBACTAM 3.375 GM in SODIUM CHLORIDE 0.9% 100 ML IVPB SCH ×2 (00:34→08:26)
--- NOTE | 2022-10-15 02:55 | PN ---
PROGRESS NOTE SUBJECTIVE: This is a 52-year-old male, he is on IV Zosyn. He is getting his gallbladder out now. He has ejection fraction of on his gallbladder HIDA scan. OBJECTIVE: VITAL SIGNS: Temperature 97.4, pulse 60s to 70s, blood pressure mid 100s to 60s, and O2 97 on room air. CARDIOVASCULAR: S1, S2. LUNGS: Clear. GI: Soft. LABORATORY DATA: White count 13.2, neutrophils 9.1. ASSESSMENT: Acute cholecystitis status post cholecystectomy. Negative troponins. Cholesterol 210, LDL 51, HDL 34. Lipase, amylase normal. Acute cholecystitis, should get cholecystectomy today. Continue home medications. GERD precautions. IV antibiotics. Possible discharge home tomorrow after gallbladder is removed today by Dr. Nix. Continue home meds and pain control. MMODL / IJN: [id number] /
[2022-10-15] MEDS ORDERED: HYDROcodone/APAP 5-325MG 1 EACH TAB PO PRN (08:08)
[2022-10-15 08:35] VITALS: BP 116/61; PULSE 74; RESP 17; TEMP 98.1
--- NOTE | 2022-10-15 11:16 | P.PN ---
Subjective Progress Note Date: 10/15/22 CHIEF COMPLAINT: Cholecystitis HISTORY OF PRESENT ILLNESS: Patient is postop day #1 status post laparoscopic robotic assisted cholecystectomy. Patient reports his pain is controlled. Denies any nausea or vomiting. He is having flatus. Tolerated diet. He has been up and ambulating. He is afebrile. PHYSICAL EXAM: VITAL SIGNS: Reviewed. GENERAL: Well-developed in no acute distress. HEENT: No sclera icterus. Extraocular movements grossly intact. Moist buccal mucosa. Head is atraumatic, normocephalic. ABDOMEN: Soft. Nondistended. Nontender. Incision sites few areas mild dried blood otherwise clean dry and intact. NEUROLOGIC: Alert and oriented. Cranial nerves II through XII grossly intact. ASSESSMENT: 1. Cholecystitis status post laparoscopic robotic assisted cholecystectomy PLAN: -Patient is stable for discharge from surgical standpoint -Follow up with Dr. singh in 1 week Physician Final Inspector And Tester note has been reviewed by physician. Signing provider agrees with the documented findings, assessment, and plan of care. Objective - Vital Signs Vital signs: Vital Signs Temp 98.1 F 10/15/22 07:00 Pulse 74 10/15/22 08:00 Resp 17 10/15/22 08:00 BP 116/61 10/15/22 07:00 Pulse Ox 96 10/15/22 09:21 FiO2 Intake & Output 10/14/22 10/15/22 10/15/22 18:59 06:59 18:59 Intake Total 100 1100 118 Output Total 25 Balance 100 1075 118 Intake: IV 100 1100 Oral 118 Output: Estimated Blood Loss 25 Other: Voiding Method Toilet Toilet Toilet # Voids 1 1 1 - Labs CBC & Chem 7: 10/14/22 06:41 10/14/22 06:41
== END 2022-10-15 16:29 | disposition home or self-care (01) ==
LOC: EC 12:29 → 6NMEDSUR 15:12
PROVIDERS: ADMIT Family Medicine; ATTEND Family Medicine
DX: K81.2 Acute cholecystitis with chronic cholecystitis (principal); K76.0 Fatty (change of) liver, not elsewhere classified; K82.8 Other specified diseases of gallbladder; F17.210 Nicotine dependence, cigarettes, uncomplicated; J98.11 Atelectasis; I07.1 Rheumatic tricuspid insufficiency; R51.9 Headache, unspecified; Z90.49 Acquired absence of other specified parts of digestive tract; Z98.890 Other specified postprocedural states; Z82.49 Family history of ischemic heart disease and other diseases of the circulatory system
CPT/HCPCS: 47562; S2900; 36415; 71046; 71250; 76705; 78227; 80048; 80053; 80061; 82150; 83690; 83735; 84484; 85025; 85379; 85610; 85730; 88304; 93005; 93306; 93351; 94760; 99285